=== PATIENT | female | born 1990 | race Hispanic/Latino ===

== ENCOUNTER 2020-11-17 07:20 | Emergency (ER) | payer OTHER ==
[~2020-11-17] VITALS: Ht 167.6 cm; Wt 104.3 kg
[2020-11-17 07:21] VITALS: BP 118/49
[2020-11-17] MEDS ORDERED: GUAIFENESIN-CODEINE 5 ML SYRUP PO ONE (08:00)
[2020-11-17] MEDS ORDERED: AZITHROMYCIN 250 MG TABLET PO ONE ×2 (08:00→08:20)
[2020-11-17] MEDS ORDERED: D-ME118S47 PO (08:08)
[2020-11-17] MEDS ORDERED: IBUP-2070 PO (08:08)
[2020-11-17] MEDS ORDERED: AZIT500T4 PO (08:08)
[2020-11-17] MEDS ORDERED: GUAIFENESIN-CODEINE 5 ML SYRUP ONE (08:20)
== END 2020-11-17 08:44 | disposition home or self-care (01) ==
LOC: EDH 07:20
DX: U07.1 COVID-19 (principal)